=== PATIENT | female | born 1980 | race Caucasian/White ===

== ENCOUNTER 2023-05-05 20:26 | Emergency (ER) | payer MEDICAID, OTHER ==
[~2023-05-05] VITALS: Ht 162.6 cm; Wt 84.0 kg
[2023-05-05 21:56] LABS: Urine Bacteria NONE SEEN /hpf (None Seen); Urine Blood Negative /uL (Negative); Urine Clarity HAZY (Clear); Urine Color Yellow (Yellow); Urine Mucus FEW (None Seen); Urine Protein, UAD Negative (Negative); Urine Specific Gravity 1.012 (1.001-1.035); Urine Urobilinogen Normal (Negative); Urine WBC 2 /hpf (0 - 5); Urine pH 5.5 (5.0-8.0)
[2023-05-06] MEDS ORDERED: ACYC400T16 PO (01:50)
[2023-05-06] MEDS: AZITHROMYCIN 250 MG TAB PO ONE (02:25)
[2023-05-06] MEDS: cefTRIAXone SOD 1,000 MG VL IM ONE (02:27)
[2023-05-06 02:52] VITALS: BP 113/84; PULSE 79; RESP 19; TEMP 98; O2SAT 97
== END 2023-05-06 02:55 | disposition home or self-care (01) ==
LOC: ER 20:26
DX: B00.89 Other herpesviral infection (principal); B00.9 Herpesviral infection, unspecified; Z20.2 Contact with and (suspected) exposure to infections with a predominantly sexual mode of transmission; Z88.6 Allergy status to analgesic agent; Z32.02 Encounter for pregnancy test, result negative
CPT/HCPCS: 81001; 81025; 96372; 99283; J0696